=== PATIENT | male | born 1985 | race Two or more races ===

== ENCOUNTER 2018-02-22 21:45 | Emergency (ER) | payer OTHER ==
--- NOTE | 2018-02-23 07:12 | XR ---
Exam: FILM LEFT 4th FINGER HISTORY: Pain TECHNIQUE: 3 views of the left fourth finger. COMPARISON: None FINDINGS: Normal bone mineralization. The joint spaces are maintained. No acute fracture, dislocation or malalignment. There is mild soft tissue swelling dorsal to the fourth DIP joint. No radiopaque foreign body. IMPRESSION: No acute bony abnormalities. Mild soft tissue swelling dorsal to the fourth DIP joint.
== END 2018-02-22 23:41 | disposition home or self-care (01) ==
LOC: EC 21:45
DX: S61.215A Laceration without foreign body of left ring finger without damage to nail, initial encounter (principal); W27.8XXA Contact with other nonpowered hand tool, initial encounter; Y93.89 Activity, other specified; Y92.009 Unspecified place in unspecified non-institutional (private) residence as the place of occurrence of the external cause
CPT/HCPCS: 12001; 99283